=== PATIENT | female | born 1975 | race Caucasian/White ===

== ENCOUNTER 2024-10-21 09:36 | Inpatient (IN) | payer OTHER ==
[~2024-10-21] VITALS: Ht 162.6 cm; Wt 70.8 kg
[2024-10-21 09:46] VITALS: O2SAT 99
[2024-10-21 11:14] LABS: HEMATOCRIT. 37.7 % (36.0-48.0); HEMOGLOBIN. 12.8 g/dL (12.0-16.0); RED BLOOD CELL COUNT 4.39 mill/uL (4.2-5.4)
[2024-10-21 11:15] LABS: BASOPHILS % 0.3 % (0.0-2.0); EOSINOPHILS % 0.1 % (0.0-5.0); LYMPHOCYTES % 11.1 % (20.0-50.0); MEAN PLATELET VOLUME 9.9 fl (7.4-10.4); MONOCYTES % 4.7 % (2.0-8.0); NEUTROPHILS % 83.8 % (40.0-76.0); PLATELET 177 x1000/uL (130-400); RED CELL DISTRIBUTION WIDTH 13.8 % (11.6-14.6)
[2024-10-21 11:24] LABS: CREATININE 0.6 mg/dL (0.6-1.0); ETHANOL BLOOD < 10 mg/dL (<10); UREA NITROGEN BLOOD 15 mg/dL (9-23)
[2024-10-21] MEDS ORDERED: GUAIFENESIN 200MG/10ML SUGAR FREE UDC PO PRN (12:45)
[2024-10-21] MEDS ORDERED: ONDANSETRON HCL 4MG/2ML INJ IV PRN (12:45)
[2024-10-21] MEDS ORDERED: MAGNESIUM/ALUMINUM HYDROXIDE/SIMETHICONE 30ML UDC PO PRN (12:45)
[2024-10-21] MEDS ORDERED: ACETAMINOPHEN 325MG TABLET PO PRN (12:45)
[2024-10-21] MEDS ORDERED: IPRATROPIUM/ALBUTEROL 0.5-3(2.5)MG/3ML NEB HHN PRN (12:45)
[2024-10-21] MEDS ORDERED: CLONIDINE 0.1MG TABLET PO PRN (12:45)
[2024-10-21] MEDS ORDERED: DOCUSATE SODIUM 100MG CAPSULE PO PRN (12:45)
[2024-10-21] MEDS ORDERED: SODIUM CHLORIDE 0.9% 1,000 ML IV NR (13:30)
[2024-10-21] MEDS ORDERED: LEVETIRACETAM 1500MG PREMIX 100 ML IV NR (13:45)
[2024-10-21] MEDS ORDERED: LORAZEPAM 2MG/ML UD SYRINGE IV PRN (14:00)
[2024-10-21] MEDS ORDERED: LEVE500T9 MT (15:02)
[2024-10-21 15:03] VITALS: BP 110/76; PULSE 101; RESP 18; TEMP 36.696
[2024-10-21 16:00] VITALS: BP 112/76; RESP 18; TEMP 36.8; O2SAT 96
[2024-10-21] MEDS: ACETAMINOPHEN 325MG TABLET PO PRN (16:19)
[2024-10-21 18:29] LABS: ASPARTATE AMINOTRANSFERASE 51 IU/L (<34)
[2024-10-21 18:30] LABS: BILIRUBIN DIRECT < 0.1 mg/dL (<=3.0); BILIRUBIN TOTAL 0.2 mg/dL (0.1-1.0); PHOSPHORUS 2.2 mg/dL (2.5-4.9); PROTEIN TOTAL 7.3 g/dL (6.0-8.3)
[2024-10-21 20:00] VITALS: BP 110/61; PULSE 105; RESP 20; TEMP 37.1; O2SAT 94
[2024-10-21] MEDS ORDERED: LEVETIRACETAM 1,500MG in NACL 100ML PREMIX IV SCH (21:00)
[2024-10-21] MEDS ORDERED: LEVETIRACETAM 1500MG PREMIX 100 ML IV SCH (21:00)
[2024-10-21 21:18] LABS: CLARITY URINE CLEAR (CLEAR); COLOR URINE YELLOW (YELLOW); GLUCOSE URINE NEGATIVE (NEGATIVE); KETONES URINE NEGATIVE (NEGATIVE); LEUKOCYTE ESTERASE URINE NEGATIVE (NEGATIVE); NITRITE URINE NEGATIVE (NEGATIVE); OCCULT BLOOD URINE NEGATIVE (NEGATIVE); PH URINE 6.5 (4.5-8.0); PROTEIN URINE NEGATIVE (NEGATIVE); SPECIFIC GRAVITY URINE 1.005 (1.005-1.030); UROBILINOGEN URINE 0.2 E.U./dL (0.2-1.0)
[2024-10-21 21:28] LABS: *AMPHETAMINES SCREEN URINE NEGATIVE (NEGATIVE); *BARBITURATES SCREEN URINE NEGATIVE (NEGATIVE); *BENZODIAZEPINES SCREEN URINE PRESUMPTIVE POSITIVE (NEGATIVE); *COCAINE SCREEN URINE NEGATIVE (NEGATIVE); METHADONE URINE SCREEN NEGATIVE (NEGATIVE); OPIATES URINE SCREEN NEGATIVE (NEGATIVE)
[2024-10-21 21:29] LABS: CANNABINOID URINE SCREEN NEGATIVE (NEGATIVE); ECSTASY MDMA SCREEN URINE NEGATIVE (NEGATIVE); PHENCYCLIDINE URINE SCREEN NEGATIVE (NEGATIVE)
[2024-10-21] MEDS: LORAZEPAM 0.5MG TABLET PO SCH (21:51)
[2024-10-21] MEDS: LAMOTRIGINE 25MG TABLET PO SCH (21:51)
[2024-10-21] MEDS: LEVETIRACETAM 1500MG PREMIX 100 ML IV SCH (21:51)
[2024-10-22] VITALS: BP 109/66; PULSE 87; RESP 22; TEMP 37.1; O2SAT 97
[2024-10-22 04:00] VITALS: BP 100/64; PULSE 86; RESP 20; TEMP 36.8; O2SAT 97
[2024-10-22 07:52] LABS: BASOPHILS % 0.5 % (0.0-2.0); EOSINOPHILS % 0.6 % (0.0-5.0); HEMATOCRIT. 37.0 % (36.0-48.0); HEMOGLOBIN. 12.7 g/dL (12.0-16.0); LYMPHOCYTES % 22.8 % (20.0-50.0); MEAN PLATELET VOLUME 9.5 fl (7.4-10.4); MONOCYTES % 9.3 % (2.0-8.0); NEUTROPHILS % 66.8 % (40.0-76.0); PLATELET 166 x1000/uL (130-400); RED BLOOD CELL COUNT 4.40 mill/uL (4.2-5.4); RED CELL DISTRIBUTION WIDTH 13.8 % (11.6-14.6)
[2024-10-22 08:00] VITALS: BP 100/65; PULSE 95; RESP 20; TEMP 36.5; O2SAT 96
[2024-10-22 08:01] LABS: TRIGLYCERIDE 103 mg/dL (0-150)
[2024-10-22 08:04] LABS: T4 FREE 1.80 ng/dL (0.89-1.76)
[2024-10-22 08:11] LABS: CREATININE 0.5 mg/dL (0.6-1.0)
[2024-10-22 08:12] LABS: UREA NITROGEN BLOOD 12 mg/dL (9-23)
[2024-10-22 08:13] LABS: LDL CHOLESTEROL 81 mg/dL (5-100)
[2024-10-22 10:39] LABS: TROPONIN I HIGH SENSITIVITY < 4 ng/L (3.0-34)
[2024-10-22 10:40] LABS: PHOSPHORUS 3.4 mg/dL (2.5-4.9)
[2024-10-22 12:00] VITALS: BP 113/75; PULSE 101; RESP 18; TEMP 36.8; O2SAT 97
[2024-10-22 16:00] VITALS: BP 102/66; PULSE 102; RESP 18; TEMP 36.6; O2SAT 95
[2024-10-22 20:00] VITALS: BP 106/70; PULSE 84; RESP 18; TEMP 36.9; O2SAT 97
[2024-10-22] MEDS: LEVETIRACETAM 500MG TABLET PO SCH (20:49)
[2024-10-22] MEDS: METHIMAZOLE 5MG TABLET PO SCH (22:10)
[2024-10-23] VITALS: BP 103/69; PULSE 68; RESP 20; TEMP 36.8; O2SAT 97
[2024-10-23 04:00] VITALS: BP 93/60; PULSE 90; RESP 20; TEMP 36.6; O2SAT 98
[2024-10-23 07:12] LABS: CREATININE 0.5 mg/dL (0.6-1.0)
[2024-10-23 07:13] LABS: UREA NITROGEN BLOOD 10 mg/dL (9-23)
[2024-10-23 07:15] LABS: BASOPHILS % 0.4 % (0.0-2.0); EOSINOPHILS % 0.9 % (0.0-5.0); HEMATOCRIT. 37.7 % (36.0-48.0); HEMOGLOBIN. 13.0 g/dL (12.0-16.0); LYMPHOCYTES % 20.9 % (20.0-50.0); MEAN PLATELET VOLUME 9.5 fl (7.4-10.4); MONOCYTES % 8.3 % (2.0-8.0); NEUTROPHILS % 69.5 % (40.0-76.0); PHOSPHORUS 3.8 mg/dL (2.5-4.9); PLATELET 165 x1000/uL (130-400); RED BLOOD CELL COUNT 4.47 mill/uL (4.2-5.4); RED CELL DISTRIBUTION WIDTH 13.4 % (11.6-14.6)
[2024-10-24 13:12] LABS: ANTI-NUCLEAR ANTIBODIES DIRECT Negative (Negative); THYROID PEROXIDASE ANTIBODY 22 IU/mL (0-34)
== END 2024-10-23 09:45 | disposition left against medical advice (07) | DRG 101 ==
LOC: ER 09:50 → 8WST 12:27 → EDBEDREQ 12:47 → EDBEDREQTM 12:47 → ENRESERV 13:15
PROVIDERS: ADMIT Internal Medicine; ATTEND Internal Medicine
PROC: 4A00X4Z Measurement of Central Nervous Electrical Activity, External Approach (ICD-10-PCS; principal; 2024-10-22)
DX: G40.909 Epilepsy, unspecified, not intractable, without status epilepticus (principal); R65.10 Systemic inflammatory response syndrome (SIRS) of non-infectious origin without acute organ dysfunction; E05.90 Thyrotoxicosis, unspecified without thyrotoxic crisis or storm; E83.39 Other disorders of phosphorus metabolism; E83.42 Hypomagnesemia; I67.1 Cerebral aneurysm, nonruptured; Z53.29 Procedure and treatment not carried out because of patient's decision for other reasons; Z79.899 Other long term (current) drug therapy
CPT/HCPCS: 36415; 80048; 80061; 80076; 80305; 80320; 81003; 82024; 82533; 82542; 82550; 83036; 83520; 83605; 83735; 83880; 84100; 84145; 84439; 84443; 84480; 84481; 84484; 85025; 86038; 86376; 93005; 93970; 95816; 99285; A4606; J1953; G0480